=== PATIENT | male | born 1940 | race Caucasian/White ===

== ENCOUNTER → 2017-05-12 08:33 | Outpatient (CLI) | payer MEDICARE, BC | END | disposition home or self-care (01) | LOC: D.CT 08:33 | DX: R10.84 Generalized abdominal pain (principal) ==

== ENCOUNTER → 2018-06-11 09:10 | Outpatient (CLI) | payer MEDICARE | END | disposition home or self-care (01) | LOC: D.CT 09:10 | DX: R93.811 Abnormal radiologic findings on diagnostic imaging of right testicle (principal) ==